=== PATIENT | male | born 1965 | race African-American/Black ===

== ENCOUNTER → 2020-12-17 | Outpatient (CLI) | payer OTHER ==
[~2020-12-17] MED LIST: ACET1TAB43 PO; FAMO20TA5 PO; LISI10TA16 PO; METF500T16 PO; NORE-93 PO; PALI234D IM
[2020-12-17 09:05] LABS: BASO # 0.1 x10^3/uL (0.0-0.2); BASO % 1 % (0-3); EOS % 1 % (0-3); HEMATOCRIT 43.5 % (39.0-53.0); HEMOGLOBIN 14.4 g/dL (13.0-17.5); LYMPH # 1.3 x10^3/uL (1.0-4.8); LYMPH % 19 % (24-48); MEAN CORPUSCULAR HEMOGLOBIN 31 pg (25-35); MEAN CORPUSCULAR HGB CONC 33 g/dL (31-37); MEAN CORPUSCULAR VOLUME 93 fL (79-100); MONO # 0.6 x10^3/uL (0.0-1.1); MONO % 9 % (0-9); NEUT # 4.8 x10^3/uL (1.8-7.7); NEUT % 70 % (31-73); PLATELET COUNT 241 x10^3/uL (140-400); RED BLOOD COUNT 4.67 x10^6/uL (4.30-5.70); RED CELL DISTRIBUTION WIDTH 14.4 % (11.5-14.5); WHITE BLOOD COUNT 6.9 x10^3/uL (4.0-11.0)
[2020-12-17 09:16] LABS: PROTHROMBIN TIME PATIENT 12.9 SEC (11.7-14.0)
[2020-12-17 09:21] LABS: ALBUMIN 3.5 g/dL (3.4-5.0); CALCIUM 9.2 mg/dL (8.5-10.1); CREATININE 1.4 mg/dL (0.7-1.3); GFR 63.2; POTASSIUM 4.6 mmol/L (3.5-5.1)
--- NOTE | 2020-12-17 11:37 | EKG ---
[facility] [address] [place] [address] Test Date: 2020-12-17 Test Time: 11:39:09 Pat Name: INDRA THOMAS Department: Room: Gender: M Manager Brand: JMG : [id number] Requested By: HANS GARIBAY Order Number: [id number] Reading MD: Grzegorz Brody MD Measurements Intervals [place] Rate: 52 P: 65 CO: 142 QRS: 64 QRSD: 86 T: 62 QT: 396 QTc: 370 Interpretive Statements SINUS RHYTHM Electronically Signed On 12-18-2020 11:44:07 CDT by Grzegorz Brody MD
--- NOTE | 2020-12-17 13:36 | RAD ---
EXAM: CHEST 2 VIEWS. HISTORY: Preoperative risk factors. COMPARISON: None. FINDINGS: Frontal and lateral views of the chest are obtained. There are no confluent infiltrates. There is no pneumothorax or pleural effusion. The heart is not en larged. IMPRESSION: 1. No confluent infiltrates. Electronically signed by: Emili Burkett MD (12/17/2020 1:34 PM) [id number]
[2020-12-18 01:08] LABS: HEMOGLOBIN A1C 6.2 % (4.8-5.6)
== END ==
LOC: SURGPAT 12:30
PROVIDERS: ATTEND Orthopaedic Surgery
DX: Z01.818 Encounter for other preprocedural examination (principal); M16.11 Unilateral primary osteoarthritis, right hip
CPT/HCPCS: 36415; 71046; 80048; 82040; 82306; 83036; 85025; 85610; 85651; 85730; 87641; 93005

== ENCOUNTER 2020-12-31 07:30 | Observation (INO) | payer OTHER ==
[2020-12-19 17:44] VITALS: BP 135/83
[2020-12-31] VITALS (10 sets, daily range): BP systolic 107–177; BP diastolic 59–89
[~2020-12-31] VITALS: Ht 175.3 cm; Wt 63.6 kg
[~2020-12-31 07:30] MED LIST changes: +ACETAMINOPHEN 500 MG TABLET PO PRN; +DEXAMETHASONE SOD PHOS 4 MG/ML VIAL ONE; +GABAPENTIN 300 MG CAPSULE. PO PRN; +GLYCOPYRROLATE 1 MG/5 ML VIAL. ONE; +IV RINGERS,LACTATED 1000ML 1,000 ML IV SCH; +LIDOCAINE 2% PF 5 ML VIAL. ONE; +MELOXICAM 7.5 MG TABLET PO PRN; +MIDAZOLAM HCL/PF 2 MG/2 ML VIAL. ONE; +ONDANSETRON PF 4 MG/2 ML VIAL. ONE; +PHENYLEPHRINE in 0.9% NACL PF 1 MG/10 ML SYRINGE. IV ONE; +PROPOFOL 10 MG/ML (20ML) VIAL. IV ONE; +TRANEXAMIC ACID 1,000 MG in IV NS 50ML -- 1ST BAG INJ ONE; +TRANEXAMIC ACID in NS IVPB 50 ML ONE; +TV=62ml MORPHINE 5 MG, KETOROLAC 30 MG, ROPIV, EPI INT ART ONE; +fentaNYL PF VIAL 100 MCG/2 ML VIAL IVP PRN; +fentaNYL PF VIAL 100 MCG/2 ML VIAL ONE
[2020-12-31] MEDS ORDERED: SUCCINYLCHOLINE 200 MG/10 ML VIAL. ONE (07:31)
[2020-12-31] MEDS ORDERED: MELO15TA23 PO (07:57)
[2020-12-31] MEDS ORDERED: TRANEXAMIC ACID 1,000 MG in IV NS 50ML -- 2ND BAG INJ ONE (08:00)
[2020-12-31] MEDS ORDERED: INSULIN LISPRO 100 UNIT/ML 3ML VIAL for OP,RR ONLY. SQ PRN (08:15)
--- NOTE | 2020-12-31 08:18 | NUR ---
Non administered preop Humalog per Dr. Knowles ok to hold.
[2020-12-31] MEDS ORDERED: HYDROmorphone 2 MG/ML VIAL ONE ×2 (09:00→11:00)
[2020-12-31] MEDS ORDERED: VANCOMYCIN 1 GM VIAL. ONE ×2 (09:24)
[2020-12-31] MEDS ORDERED: SEVOFLURANE 61 TO 120 MINUTES. IH ONE (09:48)
[2020-12-31] MEDS ORDERED: ePHEDrine PF IN SALINE 50 MG/10 ML SYRINGE. IV ONE (09:53)
--- NOTE | 2020-12-31 10:09 | PDOC4 ---
OPERATIVE NOTE Date: Date: Dec 31, 2020 Pre-Op Diagnosis: DJD right hip Post-Op Diagnosis: Same Procedure Performed: Right total hip arthroplasty Surgeon: Andrew Anesthesia Type: General Blood Loss: 400 cc Specimans Obtained: Femoral head Findings: See dictation Complications: None Operative Note: Size 4 femur with a +2.5 ceramic 36 mm femoral head 58 mm acetabular shell with a F polyliner elevated rim HANS GARIBAY Jr. DO Dec 31, 2020 10:09
[2020-12-31] MEDS ORDERED: MORPHINE SULFATE 2 MG/ML INJ. IVP PRN (10:15)
[2020-12-31] MEDS ORDERED: fentaNYL PF VIAL 100 MCG/2 ML VIAL IVP PRN (10:15)
[2020-12-31] MEDS ORDERED: ZOLPIDEM 5 MG TABLET. PO PRN (10:15)
[2020-12-31] MEDS ORDERED: 0.9 % SODIUM CHLORIDE 10 ML DISP.SYRIN. IV PRN (10:15)
[2020-12-31] MEDS ORDERED: diphenhydrAMINE 50 MG/ML VIAL IVP PRN (10:15)
--- NOTE | 2020-12-31 10:21 | OP ---
DATE OF SURGERY: 12/31/2020 PREOPERATIVE DIAGNOSIS: Severe degenerative joint disease, right hip. POSTOPERATIVE DIAGNOSIS: Severe degenerative joint disease, right hip. PROCEDURE: Right total hip arthroplasty. SURGEON: Kris Morales DO GEOLOGY SCIENTIST: Mina. ANESTHESIA: General. COMPLICATIONS: None. ESTIMATED BLOOD LOSS: 400 mL. 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 DESCRIPTION OF PROCEDURE: The patient was taken to the operative suite, given a general anesthetic, placed in lateral decubitus position, padded appropriately for placement. Right hip was then prepped and draped in a sterile fashion. A standard anterolateral approach to the hip was undertaken. Incision was through skin and subcutaneous tissues down to the iliotibial band. This was also split in line with the skin incision. After this was retracted, the portion of the inferior aspect of the gluteus medius and minimus were removed from their insertion. The remainder remained intact. This was retracted anteriorly and the capsule was opened up in an H fashion. The hip was then subsequently dislocated and one fingerbreadth above the lesser trochanter. A cut was made for the femoral neck after the guide was used. This was then sent and this will be sent to pathology. Severe changes on both sides of the joint were noted. This was measured out and reaming began at size 46 and continued up to size 58. 58 was most appropriate size for the cup. Therefore, the cup was impacted at the same angle. This was noted to be satisfactory in position. Two screws were then placed, one of 35 and one of 25 mm in length capturing significant bone. Trial poly was then placed. Broaching began on the femoral side of the joint after the cookie cutter was used and then subsequently removed. The IM guide was placed multiple times due to the narrowing of the canal. Broaching began at size 0 and continued up to size 4. This was then subsequently relocated, taken through range of motion, noted to be stable. This was subsequently dislocated. Had to be forcibly dislocated at this point. The polyethylene was then placed after the trial poly was removed and the size 4 was then placed. This was trialed again. A +2.5 ceramic 36 mm head was then affixed and this was reduced and noted to be extremely stable with extremes in range of motion, pistoning revealed this to be stable as well. The capsule was then reapproximated, but this was done after the Betadine mixture was placed within the hip itself and then subsequently left for 5 minutes and then subsequently irrigated significantly at this point. Vancomycin powder was also placed within the depths of the hip. The capsule was then reapproximated. The gluteus medius and minimus were reapproximated. The iliotibial band was then reapproximated with a running stitch. This was used to Stratafix. Superficial tissue and skin was reapproximated. Sterile dressing was applied. The patient was then taken from the operative bed to the postoperative bed, taken to the PACU in stable condition. INOCENTE DR: Jose Antonio TID: [id number]
[2020-12-31] MEDS ORDERED: MORPHINE SULFATE 2 MG/ML INJ. ONE (10:29)
[2020-12-31] MEDS ORDERED: PROCHLORPERAZINE 10 MG/2 ML VIAL. ONE (10:29)
[2020-12-31] MEDS: PROCHLORPERAZINE 10 MG/2 ML VIAL. IVP PRN ×2 (10:37→10:57)
[2020-12-31] MEDS: MORPHINE SULFATE 2 MG/ML INJ. IVP PRN ×2 (10:38→10:58)
[2020-12-31] MEDS: IV NORMAL SALINE 1000ML BAG 1,000 ML IV SCH (11:00)
[2020-12-31] MEDS: HYDROmorphone 2 MG/ML VIAL IVP PRN ×2 (11:01→11:24)
--- NOTE | 2020-12-31 11:30 | RAD ---
Single view right hip 12/31/2020 INDICATION: Postoperative. COMPARISON STUDY: Right hip radiograph December 03, 2020 FINDINGS: There are postoperative changes following total hip arthroplasty. Hardware in expected posi tion. No fracture is identified. Postoperative changes including subcutaneous gas noted. No unexpecte d findings are identified. IMPRESSION: Postoperative changes following recent right hip arthroplasty Electronically signed by: Naseem Sprague MD (12/31/2020 11:27 AM) [id number]
--- NOTE | 2020-12-31 11:30 | NUR ---
RECEIVED FROM RECOVERY. HE AROUSES TO NAME; DENIES PAIN. HE HAS GOOD SENSATION, PULSES AND MOTION ABDUCTOR PILLOW IN PLACE. MALCOLM SIGNIFICANT OTHER AT BEDSIDE.
[2020-12-31] MEDS: ONDANSETRON PF 4 MG/2 ML VIAL. IVP SCH ×3 (12:00→22:44)
--- NOTE | 2020-12-31 15:00 | NUR ---
RESTING QUIETLY IN RECLINER AT BEDSIDE. IV FLUIDS CONTINUES TO INFUSE. WAS UP TO THE THE BATHROOM; BECAME LIGHTHEADED AFTER AMBULATION. HE VOIDED 350 CC YELLOW URINE.
[2020-12-31] MEDS: FERROUS SULFATE 325 MG TABLET. PO SCH (17:52)
[2020-12-31] MEDS: oxyCODONE IR 5 MG TABLET PO PRN (19:25)
[2020-12-31] MEDS: LISINOPRIL 10 MG TABLET PO SCH (21:03)
[2021-01-01] MEDS: oxyCODONE IR 5 MG TABLET PO PRN ×3 (01:24→20:15)
[2021-01-01 03:05] VITALS: BP 103/63
[2021-01-01 04:55] LABS: PROTHROMBIN TIME PATIENT 14.4 SEC (11.7-14.0)
[2021-01-01] MEDS: traMADol 50 MG TABLET PO SCH ×3 (05:52→16:19)
[2021-01-01] MEDS: ONDANSETRON PF 4 MG/2 ML VIAL. IVP SCH (06:00)
[2021-01-01] MEDS ORDERED: GABAPENTIN 100 MG CAPSULE. PO SCH (06:00)
[2021-01-01 07:00] VITALS: BP 129/90
[2021-01-01] MEDS: FERROUS SULFATE 325 MG TABLET. PO SCH ×2 (08:19→16:55)
[2021-01-01] MEDS: SENNOSIDES/DOCUSATE 8.6/50MG TABLET. PO SCH (08:19)
[2021-01-01] MEDS: ASPIRIN 325 MG TABLET PO SCH (08:19)
[2021-01-01] MEDS: ACETAMINOPHEN 500 MG TABLET PO SCH ×3 (08:20→20:16)
[2021-01-01] MEDS: MULTIVITAMIN with MINERAL TABLET. PO SCH (08:20)
[2021-01-01] MEDS: LISINOPRIL 10 MG TABLET PO SCH (08:20)
[2021-01-01] MEDS: MELOXICAM 7.5 MG TABLET PO SCH (08:21)
[2021-01-01 11:00] VITALS: BP 135/78
[2021-01-01] MEDS: IV NORMAL SALINE 1000ML BAG 1,000 ML IV SCH (12:27)
[2021-01-01 15:00] VITALS: BP 123/76
[2021-01-01 19:00] VITALS: BP 152/80
--- NOTE | 2021-01-01 19:50 | PN ---
DATE: 01/01/2021 The patient is postoperative day #1 for a right total hip replacement. No signs or symptoms of infection. No signs or symptoms of drainage from the wound site. The dressings are intact. No signs or symptoms of DVT. No significant swelling of the calf or thigh region. Distal neurovascular status is fully intact. Since he is postoperative day #1, he has completed his antibiotics. He will continue with DVT prophylaxis. Continue with physical and occupational therapy. He is doing extremely well with that thus far and if he does as well tomorrow, he can be discharged home. He would like to do that at this point. DENAE DR: Jose Antonio TID: [id number]
[2021-01-01 23:13] VITALS: BP 130/70
[2021-01-02] MEDS: traMADol 50 MG TABLET PO SCH ×3 (00:10→12:48)
[2021-01-02] MEDS: ACETAMINOPHEN 500 MG TABLET PO SCH ×3 (03:00→15:00)
[2021-01-02 03:17] VITALS: BP 107/68
[2021-01-02 07:00] VITALS: BP 133/79
[2021-01-02 07:42] LABS: HEMATOCRIT 33.4 % (39.0-53.0); HEMOGLOBIN 11.1 g/dL (13.0-17.5)
[2021-01-02 07:53] LABS: PROTHROMBIN TIME PATIENT 15.4 SEC (11.7-14.0)
[2021-01-02] MEDS: oxyCODONE IR 5 MG TABLET PO PRN ×2 (07:54→15:27)
[2021-01-02] MEDS: LISINOPRIL 10 MG TABLET PO SCH (07:55)
[2021-01-02] MEDS: MELOXICAM 7.5 MG TABLET PO SCH (07:56)
[2021-01-02] MEDS: FERROUS SULFATE 325 MG TABLET. PO SCH (07:56)
[2021-01-02] MEDS: SENNOSIDES/DOCUSATE 8.6/50MG TABLET. PO SCH (07:56)
[2021-01-02] MEDS: ASPIRIN 325 MG TABLET PO SCH (07:56)
[2021-01-02] MEDS: MULTIVITAMIN with MINERAL TABLET. PO SCH (07:56)
[2021-01-02] MEDS: IV NORMAL SALINE 1000ML BAG 1,000 ML IV SCH (10:15)
[2021-01-02 11:21] VITALS: BP 119/72
[2021-01-02] MEDS ORDERED: OXYC5TAB4 PO (14:57)
[2021-01-02 15:00] VITALS: BP 131/65
--- NOTE | 2021-01-02 15:03 | SNU/HH DC ---
DISCHARGE WITH HOME HEALTH DISCHARGE INFORMATION: Discharge Date: Jan 02, 2021 Final Diagnosis: Status post total hip arthroplasty right Condition on Discharge: Stable CODE STATUS: Code Status: Full HOME HEALTH: Face to Face: I certify this patient is under my care and that I, or a nurse practitioner or physician's hr administrative assistant working with me, had a face to face encounter that meets the physician face to face encounter requirements with this patient on 01/02/2021 RN For Eval/Treatment: Yes Physical Therapy For: Safety Occupational Therapy For: ADL's Home Health Aide For: Self-care Pt Meets Homebound Status: Extreme weakness w/ amb., Limited distance walking POST DISCHARGE ORDERS: Activity Instructions for Disc: Activity as tolerated, Avoid exertion Weight Bearing Status after Di: Full weight bearing Bathing Instructions: No Tub Bath until see DIET AFTER DISCHARGE: Regular Wound/Incision Care: Ice to area for comfort, Keep wound elevated, Do not change dressing FOLLOW-UP: Follow up with: 14 to 21 days CERTIFICATION STATEMENT: Certification Statement: Certification Statement: Based on the above finding, I certify that this patient is confined to the home and needs intermittent [facility] care, physical therapy and/or speech therapy, or continues to need occupational therapy.~ This patient is under my care, and I have initiated the establishment of the plan of care.~ This patient will be followed by myself or a community physician who will periodically review the plan of care. Home Meds Active Scripts Oxycodone Hcl (OXYCODONE HCL IMMED.RELEASE ) 5 Mg Tablet, 5 MG PO PRN Q4HRS PRN for Pain score 4-6 MDD 8mdd, #30 TAB Prov:HANS GARIBAY Jr. DO 01/02/21 Reported Medications Meloxicam (MELOXICAM) 15 Mg Tablet, 15 MG PO 1X for preop, TAB 12/31/20 Metformin Hcl (METFORMIN HCL) 500 Mg Tablet, 500 MG PO BIDWMEALS for ANTI- DIABETIC, TAB 0 Refills 12/19/20 Lisinopril (LISINOPRIL) 10 Mg Tablet, 10 MG PO DAILY for FOR HYPERTENSION, #30 TAB 0 Refills 12/19/20 HANS GARIBAY Jr. DO Jan 02, 2021 15:03
--- NOTE | 2021-01-02 15:07 | PDOC3 ---
Discharge Summary Date of Admission: Dec 31, 2020 Date of Discharge: Jan 02, 2021 Follow-Up: Other (2 weeks) Problems: (1) S/P total hip arthroplasty Brief Hospital Course Mr. Goncalves is a 55 old male who presented with complaints of severe right hip pain. He therefore underwent a right total hip arthroplasty on December 31 postoperatively completed IV antibiotics DVT prophylaxis actually continues at this point he was under the direction of physical and occupational therapy which he progressed very well at that point. He showed no signs or symptoms of infection or DVT throughout the hospital course it went uneventfully at that p oint. Therefore on the morning of January 02 I spoke with him at length about treatment options postoperatively he wants to go home with home health he will continue with physical and Occupational Therapy DVT prophylaxis as well as wound care is discussed at length with him and his . I will see him back for reevaluation in 14 days sooner if there are any questions or concerns Discharge Medications Current Medications Fentanyl Citrate (Fentanyl 2ml Vial) 25 mcg PRN Q5MIN PRN IVP MILD PAIN 1-3; Start 12/31/20 at 06:00; Stop 12/31/20 at 20:00; Status DC Fentanyl Citrate (Fentanyl 2ml Vial) 50 mcg PRN Q5MIN PRN IVP MODERATE PAIN 4- 6; Start 12/31/20 at 06:00; Stop 12/31/20 at 20:00; Status DC Morphine Sulfate (Morphine Sulfate) 1 mg PRN Q10MIN PRN IVP SEVERE PAIN 7-10 Last administered on 12/31/20at 10:58; Start 12/31/20 at 06:00; Stop 12/31/20 at 20:00; Status DC Ringer's Solution 1,000 ml @ 30 mls/hr Q24H IV Last administered on 12/31/20at 08:09; Start 12/31/20 at 06:00; Stop 12/31/20 at 17:59; Status DC Hydromorphone HCl (Dilaudid) 0.5 mg PRN Q10MIN PRN IVP SEVERE PAIN 7-10, 2nd CHOICE Last administered on 12/31/20at 11:24; Start 12/31/20 at 06:00; Stop 12/31/20 at 20:00; Status DC Prochlorperazine Edisylate (Compazine) 5 mg PACU PRN PRN IVP NAUSEA, MRX1 Last administered on 12/31/20at 10:57; Start 12/31/20 at 06:00; Stop 12/31/20 at 20:00; Status DC Meloxicam (Mobic) 15 mg 1X PREOP PRN PO PRIOR TO PROCEDURE Last administered on 12/31/20at 08:10; Start 12/31/20 at 06:00; Stop 12/31/20 at 18:00; Status DC Gabapentin (Neurontin) 600 mg 1X PREOP PRN PO PRIOR TO PROCEDURE Last administered on 12/31/20at 08:10; Start 12/31/20 at 06:00; Stop 12/31/20 at 18:00; Status DC Acetaminophen (Tylenol) 1,000 mg 1X PREOP PRN PO PRIOR TO PROCEDURE Last administered on 12/31/20at 08:10; Start 12/31/20 at 06:00; Stop 12/31/20 at 18:00; Status DC Cefazolin Sodium/ Dextrose 50 ml @ 100 mls/hr 1X PREOP PRN IV PRIOR TO PROCEDURE Last administered on 12/31/20at 08:31; Start 12/31/20 at 06:00; Stop 12/31/20 at 18:00; Status DC Tranexamic Acid 50 ml @ 50 mls/hr 1X PERIOP ONCE INJ Last administered on 12/31/20at 08:50; Start 12/31/20 at 06:00; Stop 12/31/20 at 06:59; Status DC Tranexamic Acid 50 ml @ 50 mls/hr 1X PERIOP ONCE INJ Last administered on 12/31/20at 09:44; Start 12/31/20 at 08:00; Stop 12/31/20 at 08:59; Status DC Morphine Sulfate 5 mg/Ketorolac Tromethamine 30 mg/Ropivacaine 60 ml/Epinephrine HCl 0.5 mg/ Miscellaneous 63 ml @ 63 mls/hr 1X PERIOP ONCE INT ART Last administered on 12/31/20at 10:10; Start 12/31/20 at 06:00; Stop 12/31/20 at 06:59; Status DC Tranexamic Acid 50 ml @ As Directed STK-MED ONCE .ROUTE ; Start 12/31/20 at 07:05; Stop 12/31/20 at 07:06; Status DC Tranexamic Acid 50 ml @ As Directed STK-MED ONCE .ROUTE ; Start 12/31/20 at 07:05; Stop 12/31/20 at 07:06; Status DC Propofol (Diprivan) 200 mg STK-MED ONCE IV ; Start 12/31/20 at 07:29; Stop 12/31/20 at 07:29; Status DC Dexamethasone Sodium Phosphate (Decadron) 4 mg STK-MED ONCE .ROUTE ; Start 12/31/20 at 07:29; Stop 12/31/20 at 07:29; Status DC Ondansetron HCl (Zofran) 4 mg STK-MED ONCE .ROUTE ; Start 12/31/20 at 07:29; Stop 12/31/20 at 07:29; Status DC Lidocaine HCl (Lidocaine Pf 2% Vial) 5 ml STK-MED ONCE .ROUTE ; Start 12/31/20 at 07:29; Stop 12/31/20 at 07:29; Status DC Glycopyrrolate (Robinul) 1 mg STK-MED ONCE .ROUTE ; Start 12/31/20 at 07:29; Stop 12/31/20 at 07:29; Status DC Phenylephrine HCl (PHENYLEPHRINE in 0.9% NACL PF) 1 mg STK-MED ONCE IV ; Start 12/31/20 at 07:29; Stop 12/31/20 at 07:30; Status DC Fentanyl Citrate (Fentanyl 2ml Vial) 100 mcg STK-MED ONCE .ROUTE ; Start 12/31/20 at 07:30; Stop 12/31/20 at 07:31; Status DC Midazolam HCl (Versed) 2 mg STK-MED ONCE .ROUTE ; Start 12/31/20 at 07:30; Stop 12/31/20 at 07:31; Status DC Succinylcholine Chloride (Anectine) 200 mg STK-MED ONCE .ROUTE ; Start 12/31/20 at 07:31; Stop 12/31/20 at 07:31; Status DC Insulin Human Lispro (HumaLOG VIAL for OP,RR ONLY) 0-10 units PRN Q1HR PRN SQ PER PROTOCOL; Start 12/31/20 at 08:15; Stop 01/01/21 at 08:14; Status DC Hydromorphone HCl (Dilaudid) 2 mg STK-MED ONCE .ROUTE ; Start 12/31/20 at 09:00; Stop 12/31/20 at 09:01; Status DC Vancomycin HCl (Vancomycin) 1 gm STK-MED ONCE .ROUTE Last administered on 12/31/20at 10:09; Start 12/31/20 at 09:24; Stop 12/31/20 at 09:24; Status DC Vancomycin HCl (Vancomycin) 1 gm STK-MED ONCE .ROUTE ; Start 12/31/20 at 09:24; Stop 12/31/20 at 09:24; Status DC Sevoflurane (Ultane) 60 ml STK-MED ONCE IH ; Start 12/31/20 at 09:48; Stop 12/31/20 at 09:48; Status DC Ephedrine Sulfate (ePHEDrine PF IN SALINE SYRINGE) 50 mg STK-MED ONCE IV ; Start 12/31/20 at 09:53; Stop 12/31/20 at 09:53; Status DC Morphine Sulfate (Morphine Sulfate) 2 mg STK-MED ONCE .ROUTE ; Start 12/31/20 at 10:29; Stop 12/31/20 at 10:30; Status DC Prochlorperazine Edisylate (Compazine) 10 mg STK-MED ONCE .ROUTE ; Start 12/31/20 at 10:29; Stop 12/31/20 at 10:30; Status DC Morphine Sulfate (Morphine Sulfate) 2 mg PRN Q1HR PRN IVP PAIN; Start 12/31/20 at 10:15 Fentanyl Citrate (Fentanyl 2ml Vial) 25 mcg PRN Q1HR PRN IVP PAIN, 2nd CHOICE; Start 12/31/20 at 10:15 Diphenhydramine HCl (Benadryl) 25 mg PRN Q6HRS PRN IVP ITCHING; Start 12/31/20 at 10:15 Multivitamins (Thera M Plus) 1 tab DAILY PO Last administered on 01/02/21at 07:56; Start 01/01/21 at 09:00 Senna/Docusate Sodium (Senna Plus) 1 tab DAILY PO Last administered on 01/02/21at 07:56; Start 01/01/21 at 09:00 Ferrous Sulfate (Feosol) 325 mg BIDWMEALS PO Last administered on 01/02/21at 07:56; Start 12/31/20 at 17:00 Sodium Chloride 1,000 ml @ 40 mls/hr Q24H IV Last administered on 12/31/20at 11:00; Start 12/31/20 at 10:15 Cefazolin Sodium/ Dextrose 50 ml @ 100 mls/hr Q6H IV Last administered on 01/01/21at 01:22; Start 12/31/20 at 14:30; Stop 01/01/21 at 02:59; Status DC Zolpidem Tartrate (Ambien) 5 mg PRN QHS PRN PO INSOMNIA, MAY REPEAT IN 1HR; Start 12/31/20 at 10:15 Sodium Chloride (Normal Saline Flush) 10 ml QSHIFT PRN IV AFTER MEDS AND BLOOD DRAWS; Start 12/31/20 at 10:15 Acetaminophen (Tylenol) 1,000 mg Q6H PO Last administered on 01/01/21at 15:02; Start 01/01/21 at 09:00 Meloxicam (Mobic) 15 mg DAILY PO Last administered on 01/02/21at 07:56; Start 01/01/21 at 09:00 Tramadol HCl (Ultram) 50 mg Q6H PO Last administered on 01/02/21at 12:48; Start 01/01/21 at 06:00 Gabapentin (Neurontin) 100 mg Q12H PO ; Start 01/01/21 at 06:00; Status UNV Ondansetron HCl (Zofran) 4 mg Q6HRS IVP Last administered on 12/31/20at 17:51; Start 12/31/20 at 12:00; Stop 01/01/21 at 06:01; Status DC Oxycodone HCl (Roxicodone) 5 mg PRN Q4HRS PRN PO Pain score 4-6 Last administered on 01/02/21at 07:54; Start 12/31/20 at 10:15 Aspirin (Azucena Aspirin) 325 mg DAILYWBKFT PO Last administered on 01/02/21at 07:56; Start 01/01/21 at 08:00 Hydromorphone HCl (Dilaudid) 2 mg STK-MED ONCE .ROUTE ; Start 12/31/20 at 11:00; Stop 12/31/20 at 11:00; Status DC Lisinopril (Prinivil) 10 mg DAILY PO Last administered on 01/02/21at 07:55; Start 12/31/20 at 20:15 Active Scripts Active Oxycodone Hcl Immed.release (Oxycodone Hcl) 5 Mg Tablet 5 Mg PO PRN Q4HRS PRN MDD 8mdd Reported Meloxicam 15 Mg Tablet 15 Mg PO 1X Metformin Hcl 500 Mg Tablet 500 Mg PO BIDWMEALS Lisinopril 10 Mg Tablet 10 Mg PO DAILY Vital Signs Vital Signs Date Time Temp Pulse Resp B/P (MAP) Pulse Ox O2 Delivery O2 Flow Rate FiO2 01/02/21 13:52 98 Room Air 2.0 01/02/21 11:21 98.3 60 18 119/72 (88) 98.3 Labs Laboratory Tests Test 12/31/20 20:27 01/01/21 04:00 01/01/21 07:54 01/01/21 17:07 Glucose (Fingerstick) 176 mg/dL (70-99) 120 mg/dL (70-99) 133 mg/dL (70-99) Prothrombin Time 14.4 SEC (11.7-14.0) Prothromb Time International Ratio 1.1 (0.8-1.1) Test 01/01/21 19:49 01/02/21 06:40 01/02/21 07:52 Glucose (Fingerstick) 95 mg/dL (70-99) 109 mg/dL (70-99) Hemoglobin 11.1 g/dL (13.0-17.5) Hematocrit 33.4 % (39.0-53.0) Mean Corpuscular Hemoglobin Concent 33 g/dL (31-37) Prothrombin Time 15.4 SEC (11.7-14.0) Prothromb Time International Ratio 1.2 (0.8-1.1) Laboratory Tests Test 01/01/21 17:07 01/01/21 19:49 01/02/21 06:40 01/02/21 07:52 Glucose (Fingerstick) 133 mg/dL (70-99) 95 mg/dL (70-99) 109 mg/dL (70-99) Hemoglobin 11.1 g/dL (13.0-17.5) Hematocrit 33.4 % (39.0-53.0) Mean Corpuscular Hemoglobin Concent 33 g/dL (31-37) Prothrombin Time 15.4 SEC (11.7-14.0) Prothromb Time International Ratio 1.2 (0.8-1.1) Allergies Allergies Coded Allergies Type Severity Reaction Last Updated Verified No Known Drug Allergies 12/31/20 No Disposition/Orders: D/C to Home w/ HH Patient Instructions See discharge instructions Justicifation of Admission Dx: Justifications for Admission: Justification of Admission Dx: N/A HANS GARIBAY Jr. DO Jan 02, 2021 15:07
--- NOTE | 2021-01-02 16:09 | PATHOLOGY ---
[facility] Accession Number: [id number] . 01 Material submitted: . femur - R TOTAL HIP/FEMORAL HEAD. Modifiers: right, head . 01 Clinical history: . OSTEOARTHRITIS R TOTAL HIP ARTHROPLASTY . 02 Diagnosis: Femoral head, right total hip arthroplasty: - Advanced degenerative arthritis. (JPM:rebecca; 01/02/2021) QMS 01/02/2021 1408 Local . 02 Electronically signed: . Ramon Soto MD, Pathologist NPI- [id number] . 01 Gross description: . The specimen is received in formalin, labeled "Juan Goncalves, R femoral head". Received is a femoral head with attached femoral neck measuring 5.7 x 5.7 x 5.9 cm in greatest dimensions. The articular surface is smooth to granular in appearance with moderate eburnation identified. Moderate osteophytic lipping is present. Sectioning reveals yellow-milner cut surfaces with no grossly distinct nodules or lesions. The specimen is submitted representatively in cassette A1. ([facility]; 01/01/2021) QA/[facility] 01/01/2021 1144 Local . 02 Pathologist provided ICD-10: M16.11 . 02 CPT . 595947 Specimen Comment: A courtesy copy of this report has been sent to [phone] Specimen Comment: Report sent to Specimen Comment: A duplicate report has been generated due to demographic updates. Performed at: 01 [facility] [address] [id number] MD Teofilo Duke MD Phone: [phone] Performed at: 02 [facility] [address] [place], [place] [id number] MD Ramon Soto MD Phone: [phone]
--- NOTE | 2021-01-02 16:45 | NUR ---
Patient received discharge paperwork/home health and instructions from [facility] nurse. Patient taken to vehicle with fiance by MARV
== END 2021-01-02 16:40 | disposition home health service (06) ==
LOC: SURG 07:30 → 4 NORTH 10:36 → INTOOBSV 10:36
PROVIDERS: ADMIT Orthopaedic Surgery; ATTEND Orthopaedic Surgery
DX: M16.11 Unilateral primary osteoarthritis, right hip (principal); M19.90 Unspecified osteoarthritis, unspecified site; E11.9 Type 2 diabetes mellitus without complications; F17.210 Nicotine dependence, cigarettes, uncomplicated; Z96.649 Presence of unspecified artificial hip joint; Z79.4 Long term (current) use of insulin; Z79.82 Long term (current) use of aspirin; Z90.5 Acquired absence of kidney; Z79.899 Other long term (current) drug therapy; Z98.890 Other specified postprocedural states
CPT/HCPCS: 27130; 36415; 73501; 82962; 85014; 85018; 85610; 86850; 86900; 86901; 88304; 88311; 96365; 96366; 96375; 97110; 97116; 97150; 97162; 97166; 97530; 97535; 99406; A4213; A4930; A6258; A6550; C1755; C1776; G0378; G0379; J0171; J0330; J0690; J0780; J1100; J1170; J1885; J2250; J2270; J2370; J2405; J2704; J2795; J3010; J3370; J3490; J7030; A4223